=== PATIENT | female | born 1970 | race Caucasian/White ===

== ENCOUNTER 2024-12-15 02:31 | Emergency (ER) | payer OTHER ==
[2024-12-15 02:38] VITALS: BP 107/60; PULSE 87; RESP 18; TEMP 98.5; BMI 25.6
[2024-12-15] MEDS ORDERED: MORPHINE SULFATE 2 MG/ML SYRINGE ONE (03:46)
[2024-12-15] MEDS ORDERED: VANCOMYCIN 1 GM PREMIX (F) 1 GM/200 ML BAG ONE (03:46)
[2024-12-15] MEDS ORDERED: PIPERACILLIN/TAZOB 3.375 GM 3.375 GM/50 ML BAG IVPB ONE (03:46)
[2024-12-15] MEDS ORDERED: diphenhydrAMINE HCL 25 MG CAPSULE (FP) PO ONE (03:49)
[2024-12-15] MEDS: morphine CARPU-JECT 2 MG/1 ML DISP.SYRIN IVPUSH ONE (04:05)
[2024-12-15] MEDS: PIPERACILLIN/TAZOB 3.375 GM 3.375 GM in DEXTROSE 5%-WATER - 50 ML IVPB ONE (04:05)
[2024-12-15] MEDS: VANCOMYCIN 1,000 MG in DEXTROSE 5%-WATER - 250 ML IVPB ONE (04:05)
[2024-12-15] MEDS ORDERED: DALBAVANCIN HCL 500 MG VIAL (RESTRICTED TO ID ONLY) IVPB ONE (04:11)
[2024-12-15 04:15] LABS: ABSOLUTE IMMATURE GRANULOCYTES 0.02 x10^3/uL (0.0-0.031); BASOPHILS # 0.05 x10^3/uL (0.01-0.08); EOSINOPHIL % 2.5 % (0.7-5.8); EOSINOPHILS # 0.22 x10^3/uL (0.04-0.36); HEMATOCRIT 31.4 % (34.1-44.9); HEMOGLOBIN 10.3 g/dL (11.2-15.7); MCHC 32.8 g/dl (32.2-35.5); MEAN CELL VOLUME 89.2 fl (79.4-94.8); MEAN PLT VOLUME 11.2 fl (9.4-12.3); MONOCYTE # 0.48 x10^3/uL (0.24-0.86); MONOCYTE % 5.5 % (4.7-12.5); PLATELET COUNT 341 x10^3/uL (182-369); RDW 13.6 % (12.3-16.6)
[2024-12-15] MEDS: SODIUM CHLORIDE 1,000 ML IV STA (04:17)
[2024-12-15] MEDS: diphenhydrAMINE HCL 50 MG CAPSULE PO ONE (04:17)
[2024-12-15 04:27] LABS: INR 1.05 (0.83-1.09); PROTHROMBIN TIME (PATIENT) 11.6 SEC (9.7-13.0)
[2024-12-15 04:29] LABS: ACTIVATED PTT 41.8 SECONDS (25.2-36.5)
[2024-12-15] MEDS: DALBAVANCIN HCL 1,500 MG in DEXTROSE 5%-WATER - 500 ML IVPB ONE (04:51)
[2024-12-15 04:52] LABS: ANION GAP 5 mmol/L (4-13); BLOOD UREA NITROGEN 22.1 mg/dL (7-18); CALCIUM 10.3 mg/dL (8.5-10.1); CHLORIDE 106 mmol/L (98-107); CO2 26 mmol/L (21-32); CREATININE 0.6 mg/dL (0.55-1.3); GLUCOSE,RANDOM 136 mg/dL (74-106); MAGNESIUM 1.8 mg/dL (1.8-2.4); PHOSPHOROUS 3.4 mg/dL (2.5-4.9); POTASSIUM 4.6 mmol/L (3.5-5.1); SGOT/AST 11 U/L (15-37); SGPT/ALT 24 U/L (13-61); SODIUM 137 mmol/L (136-145)
[2024-12-15 04:53] LABS: BILIRUBIN,TOTAL 0.4 mg/dL (0.2-1); TOT PROT 7.6 g/dl (6.4-8.2)
[2024-12-15 04:59] LABS: ALK PHOS 99 U/L (45-117)
[2024-12-15 05:16] LABS: ERYTHROCYTE SEDIMENTATION RATE 58 mm/hr (0-30)
[2024-12-15] MEDS: morphine CARPU-JECT 2 MG/1 ML DISP.SYRIN IM ONE (06:30)
[2024-12-15] MEDS ORDERED: IBUPROFEN 600 MG TABLET (FP) PO ONE (06:31)
[2024-12-15] MEDS ORDERED: LIDOCAINE 2.5%/PRILOCAINE 2.5% (5 Gram/TUBE) TP ONE (06:32)
[2024-12-15] MEDS: IBUPROFEN 600 MG TABLET (FP) PO ONE (06:32)
[2024-12-15] MEDS: LIDOCAINE 2.5%/PRILOCAINE 2.5% 30 GRAM TUBE TP ONE (06:37)
== END 2024-12-15 06:41 | disposition home or self-care (01) ==
LOC: JER 02:31
PROC: 3E03329 Introduction of Other Anti-infective into Peripheral Vein, Percutaneous Approach (ICD-10-PCS; principal; 2024-12-15)
PROC: 3E033NZ Introduction of Analgesics, Hypnotics, Sedatives into Peripheral Vein, Percutaneous Approach (ICD-10-PCS; 2024-12-15)
DX: L03.031 Cellulitis of right toe (principal)
CPT/HCPCS: 36415; 73630-TC-RT-FY; 80053; 83735; 84100; 85025; 85610; 85651; 85730; 86140; 86850; 86900; 86901; 93005; 93010; 99285-25; J0875

== ENCOUNTER 2025-01-01 20:21 | Emergency (ER) | payer OTHER ==
[2025-01-01 20:35] VITALS: BP 116/58; PULSE 101; RESP 20; TEMP 98.3; BMI 25.9
[2025-01-01] MEDS ORDERED: CEFEPIME HCL/D5W 2 GM/50 ML BAG IVPB ONE (21:30)
[2025-01-01] MEDS ORDERED: MORPHINE SULFATE 2 MG/ML SYRINGE ONE (21:30)
[2025-01-01] MEDS: morphine SULFATE 4 MG/ML VIAL IVPUSH ONE (21:50)
[2025-01-01] MEDS: CEFEPIME HCL 2 GM VIAL (RESTRICTED TO ID) IVPB ONE (21:50)
[2025-01-01 21:55] LABS: ABSOLUTE IMMATURE GRANULOCYTES 0.02 x10^3/uL (0.0-0.031); BASOPHILS # 0.06 x10^3/uL (0.01-0.08); EOSINOPHIL % 3.2 % (0.7-5.8); EOSINOPHILS # 0.31 x10^3/uL (0.04-0.36); HEMATOCRIT 29.4 % (34.1-44.9); HEMOGLOBIN 9.5 g/dL (11.2-15.7); MCHC 32.3 g/dl (32.2-35.5); MEAN CELL VOLUME 89.4 fl (79.4-94.8); MEAN PLT VOLUME 11.1 fl (9.4-12.3); MONOCYTE # 0.84 x10^3/uL (0.24-0.86); MONOCYTE % 8.7 % (4.7-12.5); PLATELET COUNT 345 x10^3/uL (182-369); RDW 13.8 % (12.3-16.6)
[2025-01-01 22:02] LABS: INR 1.04 (0.83-1.09); PROTHROMBIN TIME (PATIENT) 11.4 SEC (9.7-13.0)
[2025-01-01 22:05] LABS: ACTIVATED PTT 40.9 SECONDS (25.2-36.5)
[2025-01-01 22:28] LABS: CHLORIDE 108 mmol/L (98-107); POTASSIUM 4.1 mmol/L (3.5-5.1); SODIUM 141 mmol/L (136-145)
[2025-01-01 22:30] LABS: ALBUMIN 3.8 g/dl (3.4-5.0); ANION GAP 6 mmol/L (4-13); BLOOD UREA NITROGEN 24.4 mg/dL (7-18); CO2 27 mmol/L (21-32)
[2025-01-01 22:31] LABS: GLUCOSE,RANDOM 52 mg/dL (74-106)
[2025-01-01 22:33] LABS: ERYTHROCYTE SEDIMENTATION RATE 68 mm/hr (0-30); SGPT/ALT 26 U/L (13-61)
[2025-01-01 22:34] LABS: CREATININE 0.6 mg/dL (0.55-1.3); SGOT/AST 15 U/L (15-37)
[2025-01-01 22:35] LABS: BILIRUBIN,TOTAL 0.2 mg/dL (0.2-1); TOT PROT 7.5 g/dl (6.4-8.2)
[2025-01-01 22:36] LABS: ALK PHOS 113 U/L (45-117)
[2025-01-01] MEDS ORDERED: AMOX TR/POT CLAV 875MG/125MG TABLETS (FP) ONE (23:16)
[2025-01-01] MEDS: AMOX TR/POT CLAV 875MG/125MG TABLETS (FP) PO ONE (23:30)
== END 2025-01-01 23:31 | disposition home or self-care (01) ==
LOC: JER 20:21
PROC: 3E033NZ Introduction of Analgesics, Hypnotics, Sedatives into Peripheral Vein, Percutaneous Approach (ICD-10-PCS; principal; 2025-01-01)
PROC: 3E03329 Introduction of Other Anti-infective into Peripheral Vein, Percutaneous Approach (ICD-10-PCS; 2025-01-01)
DX: E11.621 Type 2 diabetes mellitus with foot ulcer (principal); L97.518 Non-pressure chronic ulcer of other part of right foot with other specified severity; E11.52 Type 2 diabetes mellitus with diabetic peripheral angiopathy with gangrene; M79.671 Pain in right foot; R00.0 Tachycardia, unspecified
CPT/HCPCS: 36415; 73610-TC-RT-FY; 73630-TC-RT-FY; 73660-TC-FY; 80053; 85025; 85610; 85651; 85730; 86140; 86850; 86900; 86901; 93005; 93010; 96374; 96375; 99285-25

== ENCOUNTER 2025-01-02 09:21 | Inpatient (IN) | payer OTHER ==
[2025-01-02] MEDS ORDERED: morphine SULFATE 4 MG/ML VIAL ONE (10:32)
[2025-01-02] MEDS: morphine CARPU-JECT 4 MG/1 ML DISP.SYRIN IVPUSH ONE (10:50)
[2025-01-02 11:07] LABS: ABSOLUTE IMMATURE GRANULOCYTES 0.02 x10^3/uL (0.0-0.031); BASOPHILS # 0.04 x10^3/uL (0.01-0.08); EOSINOPHIL % 1.4 % (0.7-5.8); EOSINOPHILS # 0.11 x10^3/uL (0.04-0.36); HEMATOCRIT 30.7 % (34.1-44.9); MCHC 32.6 g/dl (32.2-35.5); MEAN CELL VOLUME 90.3 fl (79.4-94.8); MEAN PLT VOLUME 10.8 fl (9.4-12.3); MONOCYTE # 0.48 x10^3/uL (0.24-0.86); PLATELET COUNT 343 x10^3/uL (182-369); RDW 13.8 % (12.3-16.6)
[2025-01-02 11:15] LABS: INR 1.06 (0.83-1.09); PROTHROMBIN TIME (PATIENT) 11.5 SEC (9.7-13.0)
[2025-01-02 11:26] LABS: CHLORIDE 109 mmol/L (98-107); POTASSIUM 4.4 mmol/L (3.5-5.1); SODIUM 141 mmol/L (136-145)
[2025-01-02 11:28] LABS: CALCIUM 10.2 mg/dL (8.5-10.1)
[2025-01-02 11:29] LABS: ALBUMIN 3.8 g/dl (3.4-5.0); ANION GAP 5 mmol/L (4-13); BLOOD UREA NITROGEN 18.2 mg/dL (7-18); CO2 27 mmol/L (21-32); GLUCOSE,RANDOM 60 mg/dL (74-106)
[2025-01-02 11:32] LABS: CREATININE 0.5 mg/dL (0.55-1.3); SGOT/AST 14 U/L (15-37); SGPT/ALT 24 U/L (13-61)
[2025-01-02 11:33] LABS: BILIRUBIN,TOTAL 0.3 mg/dL (0.2-1)
[2025-01-02 11:34] LABS: TOT PROT 7.3 g/dl (6.4-8.2)
[2025-01-02 11:35] LABS: ALK PHOS 107 U/L (45-117)
[2025-01-02] MEDS ORDERED: KETOROLAC TROMETHAMINE 15 MG/ML VIAL IVPUSH PRN (12:22)
[2025-01-02 12:42] LABS: HCV DIAGNOSTIC IN-HOUSE W/RFLX NON-REACTIVE (NONREACTIVE)
[2025-01-02 12:43] LABS: HIV INTERPRETATION NEGATIVE (NEGATIVE)
[2025-01-02] MEDS ORDERED: CEFEPIME HCL/D5W 1 GM/50 ML BAG IVPB ONE (13:09)
[2025-01-02] MEDS: CEFEPIME HCL/D5W 1 GM/50 ML BAG IVPB SCH (13:14)
[2025-01-02 13:46] LABS: ERYTHROCYTE SEDIMENTATION RATE 4 mm/hr (0-30)
[2025-01-02 16:27] VITALS: BMI 25.9
[2025-01-02] MEDS: SODIUM CHLORIDE 1,000 ML IV SCH (16:42)
[2025-01-02] MEDS: INSULIN ASPART SLIDING SCALE (NOVOLOG) 1 VIAL SQ SCH (16:52)
[2025-01-02] MEDS: CEFEPIME HCL 1 GM VIAL (RESTRICTED TO ID) IVPB SCH (17:32)
[2025-01-03] MEDS: ACETAMINOPHEN 325 MG TABLET (FP) PO PRN ×2 (00:01→20:55)
[2025-01-03] MEDS: DEXTROSE 50%-WATER - 25 GM/50 ML VIAL IVPUSH ONE (07:03)
[2025-01-03] MEDS: DEXTROSE 50%-WATER 25 GM/50 ML DISP.SYRIN IVPUSH ONE ×2 (07:34→12:44)
[2025-01-03 09:22] LABS: HEMATOCRIT 31.4 % (34.1-44.9); HEMOGLOBIN 10.2 g/dL (11.2-15.7); MCHC 32.5 g/dl (32.2-35.5); MEAN CELL VOLUME 90.2 fl (79.4-94.8); MEAN PLT VOLUME 11.1 fl (9.4-12.3); PLATELET COUNT 331 x10^3/uL (182-369); RDW 13.6 % (12.3-16.6)
[2025-01-03 09:38] LABS: POTASSIUM 4.1 mmol/L (3.5-5.1)
[2025-01-03 09:53] LABS: BLOOD UREA NITROGEN 12.6 mg/dL (7-18); CALCIUM 10.3 mg/dL (8.5-10.1)
[2025-01-03 09:54] LABS: ALBUMIN 3.7 g/dl (3.4-5.0); MAGNESIUM 1.9 mg/dL (1.8-2.4)
[2025-01-03 09:57] LABS: CREATININE 0.5 mg/dL (0.55-1.3)
[2025-01-03 09:58] LABS: PHOSPHOROUS 3.8 mg/dL (2.5-4.9)
[2025-01-03 09:59] LABS: BILIRUBIN,TOTAL 0.4 mg/dL (0.2-1); TOT PROT 7.3 g/dl (6.4-8.2)
[2025-01-03] MEDS: CEFTRIAXONE 2 GM-D5W BAG 2 GM/50 ML BAG IVPB SCH (10:05)
[2025-01-03] MEDS: COLLAGENASE CLOSTRIDIUM HIST. 30 GRAMS TUBE TP SCH (10:05)
[2025-01-03] MEDS ORDERED: ONDANSETRON 4 MG/2 ML VIAL IVPUSH PRN ×2 (14:05→16:15)
[2025-01-03] MEDS ORDERED: HEPARIN NA (PORCINE) 5,000 UNITS/ML 1ML VIAL ONE (14:11)
[2025-01-03] MEDS ORDERED: LIDOCAINE HCL 1%, 10 MG/ML (20ML VIAL) ONE (14:11)
[2025-01-03] MEDS ORDERED: LACTATED RINGERS SOLUTION 1,000 ML IV SCH (14:15)
[2025-01-03] MEDS ORDERED: MIDAZOLAM HCL 2 MG/2 ML SINGLE DOSE VIAL ONE (14:29)
[2025-01-03] MEDS ORDERED: PROPOFOL 20 ML ONE (14:29)
[2025-01-03] MEDS ORDERED: ONDANSETRON 4 MG/2 ML VIAL ONE (14:46)
[2025-01-03] MEDS: LIDOCAINE HCL 1%, 10 MG/ML (20ML VIAL) INF ONE (15:00)
[2025-01-03] MEDS: LACTATED RINGERS SOLUTION 1,000 ML IV SCH (16:21)
[2025-01-03] MEDS: CLOPIDOGREL BISULFATE 300 MG TABLET PO ONE (16:45)
[2025-01-03] MEDS: ASPIRIN 325 MG ENTERIC COATED TABLET (FP) PO ONE (16:45)
[2025-01-03] MEDS: INSULIN ASPART SLIDING SCALE (NOVOLOG) 1 VIAL SQ SCH (16:48)
[2025-01-03] MEDS: SODIUM CHLORIDE 1,000 ML IV SCH (17:56)
[2025-01-04 08:04] LABS: ABSOLUTE IMMATURE GRANULOCYTES 0.02 x10^3/uL (0.0-0.031); BASOPHILS # 0.05 x10^3/uL (0.01-0.08); EOSINOPHIL % 1.7 % (0.7-5.8); EOSINOPHILS # 0.12 x10^3/uL (0.04-0.36); HEMATOCRIT 30.8 % (34.1-44.9); MCHC 32.5 g/dl (32.2-35.5); MEAN CELL VOLUME 89.3 fl (79.4-94.8); MEAN PLT VOLUME 10.6 fl (9.4-12.3); MONOCYTE # 0.44 x10^3/uL (0.24-0.86); MONOCYTE % 6.1 % (4.7-12.5); PLATELET COUNT 321 x10^3/uL (182-369); RDW 13.4 % (12.3-16.6)
[2025-01-04 08:32] LABS: POTASSIUM 4.5 mmol/L (3.5-5.1)
[2025-01-04 08:40] LABS: ALBUMIN 3.5 g/dl (3.4-5.0); BLOOD UREA NITROGEN 9.7 mg/dL (7-18); CALCIUM 10.2 mg/dL (8.5-10.1)
[2025-01-04 08:43] LABS: CREATININE 0.5 mg/dL (0.55-1.3)
[2025-01-04 08:45] LABS: BILIRUBIN,TOTAL 0.4 mg/dL (0.2-1); TOT PROT 7.2 g/dl (6.4-8.2)
[2025-01-04] MEDS: CEFTRIAXONE 2 GM-D5W BAG 2 GM/50 ML BAG IVPB SCH (09:36)
[2025-01-04] MEDS: ASPIRIN COATED 81 MG TABLET.EC PO SCH (09:36)
[2025-01-04] MEDS: CLOPIDOGREL BISULFATE 75 MG TABLET (FP) PO SCH (09:36)
[2025-01-04] MEDS: COLLAGENASE CLOSTRIDIUM HIST. 30 GRAMS TUBE TP SCH (09:37)
[2025-01-04] MEDS: KETOROLAC TROMETHAMINE 15 MG/ML VIAL IVPUSH PRN (20:38)
[2025-01-05] MEDS: INSULIN GLARGINE (LANTUS) 100 UNITS/ML UNITS SQ SCH (12:10)
[2025-01-06 09:53] LABS: INR 1.08 (0.83-1.09); PROTHROMBIN TIME (PATIENT) 11.9 SEC (9.7-13.0)
[2025-01-06] MEDS: INSULIN GLARGINE (LANTUS) 100 UNITS/ML UNITS SQ ONE (13:44)
[2025-01-07] MEDS: INSULIN GLARGINE (LANTUS) 100 UNITS/ML UNITS SQ SCH (06:51)
[2025-01-07] MEDS ORDERED: GENTAMICIN SO4 80 MG/2 ML VIAL ONE (07:14)
[2025-01-07] MEDS ORDERED: DEXAMETHASONE SOD PHOSPHATE 4 MG/1 ML VIAL ONE (07:14)
[2025-01-07] MEDS ORDERED: BUPIVACAINE HCL/PF 0.5% (5MG/ML) 10 ML VIAL ONE (07:14)
[2025-01-07] MEDS ORDERED: LIDOCAINE HCL 1%, 10 MG/ML (20ML VIAL) ONE (07:14)
[2025-01-07] MEDS ORDERED: PROPOFOL 20 ML ONE ×2 (07:31→07:41)
[2025-01-07] MEDS ORDERED: MIDAZOLAM HCL 2 MG/2 ML SINGLE DOSE VIAL ONE (07:31)
[2025-01-07] MEDS: ceFAZolin 2 GRAM PREMIX BAG IVPB ONE (07:50)
[2025-01-07] MEDS ORDERED: SUCCINYLCHOLINE CHLORIDE 200 MG/10 ML SYRINGE ONE (08:03)
[2025-01-07] MEDS ORDERED: LACTATED RINGERS SOLUTION 1,000 ML IV SCH (08:15)
[2025-01-07] MEDS ORDERED: ONDANSETRON 4 MG/2 ML VIAL IVPUSH PRN ×2 (08:15→08:40)
[2025-01-07] MEDS: CLOPIDOGREL BISULFATE 75 MG TABLET (FP) PO SCH (10:11)
[2025-01-07] MEDS: ASPIRIN COATED 81 MG TABLET.EC PO SCH (10:11)
[2025-01-07] MEDS: COLLAGENASE CLOSTRIDIUM HIST. 30 GRAMS TUBE TP SCH (10:12)
[2025-01-07] MEDS: CEFTRIAXONE 2 GM-D5W BAG 2 GM/50 ML BAG IVPB SCH (10:12)
[2025-01-07 10:20] LABS: ABSOLUTE IMMATURE GRANULOCYTES 0.02 x10^3/uL (0.0-0.031); BASOPHILS # 0.05 x10^3/uL (0.01-0.08); EOSINOPHIL % 2.8 % (0.7-5.8); HEMATOCRIT 28.5 % (34.1-44.9); HEMOGLOBIN 9.5 g/dL (11.2-15.7); MCHC 33.3 g/dl (32.2-35.5); MEAN CELL VOLUME 89.1 fl (79.4-94.8); MEAN PLT VOLUME 11.4 fl (9.4-12.3); MONOCYTE # 0.41 x10^3/uL (0.24-0.86); MONOCYTE % 5.7 % (4.7-12.5); PLATELET COUNT 316 x10^3/uL (182-369); RDW 13.3 % (12.3-16.6)
[2025-01-07 10:43] LABS: CALCIUM 10.1 mg/dL (8.5-10.1)
[2025-01-07 10:44] LABS: ALBUMIN 3.6 g/dl (3.4-5.0); BLOOD UREA NITROGEN 19.7 mg/dL (7-18)
[2025-01-07 10:47] LABS: CREATININE 0.5 mg/dL (0.55-1.3)
[2025-01-07 10:48] LABS: BILIRUBIN,TOTAL 0.2 mg/dL (0.2-1)
[2025-01-07 10:49] LABS: TOT PROT 7.2 g/dl (6.4-8.2)
[2025-01-07] MEDS: ACETAMINOPHEN 325 MG TABLET (FP) PO PRN (12:10)
[2025-01-07] MEDS: INSULIN ASPART SLIDING SCALE (NOVOLOG) 1 VIAL SQ SCH (12:31)
[2025-01-07] MEDS: traMADol HCL 50 MG TABLET PO ONE (13:44)
[2025-01-07] MEDS ORDERED: traMADol HCL 50 MG TABLET PO PRN (13:48)
[2025-01-07] MEDS: traMADol HCL 50 MG TABLET PO PRN (18:41)
[2025-01-07] MEDS: ROSUVASTATIN CA 20 MG TABLET PO SCH (21:08)
[2025-01-07] MEDS ORDERED: ROSUVASTATIN CA 20 MG TABLET PO SCH (22:00)
[2025-01-07] MEDS: ACETAMINOPHEN 1000 MG/100 ML BAG IVPB PRN (23:10)
[2025-01-08] MEDS: INSULIN GLARGINE (LANTUS) 100 UNITS/ML UNITS SQ SCH (06:00)
[2025-01-08 09:13] LABS: ABSOLUTE IMMATURE GRANULOCYTES 0.03 x10^3/uL (0.0-0.031); BASOPHILS # 0.06 x10^3/uL (0.01-0.08); EOSINOPHIL % 1.4 % (0.7-5.8); EOSINOPHILS # 0.12 x10^3/uL (0.04-0.36); HEMATOCRIT 31.8 % (34.1-44.9); HEMOGLOBIN 10.4 g/dL (11.2-15.7); MCHC 32.7 g/dl (32.2-35.5); MEAN CELL VOLUME 89.6 fl (79.4-94.8); MEAN PLT VOLUME 11.5 fl (9.4-12.3); MONOCYTE # 0.43 x10^3/uL (0.24-0.86); MONOCYTE % 5.1 % (4.7-12.5); PLATELET COUNT 348 x10^3/uL (182-369); RDW 13.3 % (12.3-16.6)
[2025-01-08 09:43] LABS: POTASSIUM 4.5 mmol/L (3.5-5.1)
[2025-01-08 09:47] LABS: BLOOD UREA NITROGEN 17.3 mg/dL (7-18); CALCIUM 10.8 mg/dL (8.5-10.1)
[2025-01-08 09:52] LABS: CREATININE 0.5 mg/dL (0.55-1.3)
[2025-01-08] MEDS: ONDANSETRON 4 MG/2 ML VIAL IVPUSH ONE (11:01)
[2025-01-08] MEDS: oxyCODONE HCL 5 MG TABLET PO PRN (16:30)
[2025-01-08] MEDS: SODIUM CHLORIDE 1,000 ML IV SCH (16:41)
[2025-01-08] MEDS: ONDANSETRON 4 MG/2 ML VIAL IVPUSH PRN (22:18)
[2025-01-09 08:18] LABS: ABSOLUTE IMMATURE GRANULOCYTES 0.02 x10^3/uL (0.0-0.031); BASOPHILS # 0.05 x10^3/uL (0.01-0.08); EOSINOPHIL % 1.1 % (0.7-5.8); HEMATOCRIT 29.8 % (34.1-44.9); HEMOGLOBIN 9.8 g/dL (11.2-15.7); MCHC 32.9 g/dl (32.2-35.5); MEAN CELL VOLUME 88.7 fl (79.4-94.8); MEAN PLT VOLUME 11.3 fl (9.4-12.3); MONOCYTE # 0.61 x10^3/uL (0.24-0.86); MONOCYTE % 6.4 % (4.7-12.5); PLATELET COUNT 333 x10^3/uL (182-369); RDW 13.2 % (12.3-16.6)
[2025-01-09] MEDS: ACETAMINOPHEN 1000 MG/100 ML BAG IVPB SCH (09:36)
[2025-01-09 15:05] VITALS: RESP 18
[2025-01-09 18:07] VITALS: BP 112/53; PULSE 94; TEMP 98.4
== END 2025-01-09 18:18 | disposition home health service (06) | DRG 181 ==
LOC: JER 09:21 → JERBED 12:08 → J5S 15:18
PROVIDERS: ADMIT Internal Medicine; ATTEND Internal Medicine
PROC: 047R3ZZ Dilation of Right Posterior Tibial Artery, Percutaneous Approach (ICD-10-PCS; 2025-01-03)
PROC: 047P3ZZ Dilation of Right Anterior Tibial Artery, Percutaneous Approach (ICD-10-PCS; principal; 2025-01-03 14:00)
PROC: 0Y6V0Z0 Detachment at Right 4th Toe, Complete, Open Approach (ICD-10-PCS; 2025-01-07)
DX: E11.52 Type 2 diabetes mellitus with diabetic peripheral angiopathy with gangrene (principal); I96 Gangrene, not elsewhere classified; E78.5 Hyperlipidemia, unspecified; I10 Essential (primary) hypertension; I77.1 Stricture of artery
CPT/HCPCS: 36415; 71045-TC-FY; 73718-TC-RT; 76000-TC-FY; 80048; 80053; 82306; 82962; 83735; 83970; 84100; 85025; 85027; 85610; 85651; 86140; 86803; 86850; 86900; 86901; 87389; 88305-TC; 88311-TC; 93005; 93010; 94760; 97116-GP; 97161-GP; 99285-25; C1760; C1769; G0463-25